=== PATIENT | male | born 2000 | race Two or more races ===

== ENCOUNTER 2025-05-21 20:09 | Emergency (ER) | payer MEDICAID, SELFPAY ==
[2025-05-21 20:11] VITALS: BP 138/78; PULSE 100; RESP 18; TEMP 37.8; O2SAT 96; BMI 35.2
--- NOTE | 2025-05-21 20:32 | PD.EDEAR ---
ED Ear RME/HPI General Chief complaint: Ear Stated complaint: BILAT EAR PAIN Time Seen by Provider: 05/21/25 20:20 Arrival date/time: 05/21/25 20:09 This is a case of 54-year-old male with no medical history came in in the emergency room due to bilateral ear pain with bilateral ear discharge for 2 days with decreased hearing no tinnitus no dizziness no cough no nasal congestion persistence of the symptoms this patient decided to sought consult here in the emergency room Limitations: no limitations Related Data Previous Rx's ?Medication ?Instructions ?Recorded amoxicillin 875 mg-potassium 1 tab PO BID 10 days #20 tabs 05/21/25 clavulanate 125 mg tablet ibuprofen 800 mg tablet 800 mg PO Q8H PRN pain #20 tabs 05/21/25 ofloxacin 0.3 % ear drops 5 drp otic (ear) BID 7 days #10 mL 05/21/25 Allergies Allergy/AdvReac Type Severity Reaction Status Date / Time No Known Allergies Allergy Verified 05/21/25 20:15 Review of Systems Review of Systems Systems Reviewed: All systems reviewed, normal except as documented Constitutional Constitutional: Reports system reviewed and no additional complaints, except as documented and Reports as per HPI ENT Ears, Nose, Mouth, and Throat: Reports system reviewed and no additional complaints, except as documented and Reports as per HPI Cardiovascular Cardiovascular: Reports system reviewed and no additional complaints, except as documented and Reports as per HPI Respiratory Respiratory: Reports system reviewed and no additional complaints, except as documented and Reports as per HPI Musculoskeletal Musculoskeletal: Reports system reviewed and no additional complaints, except as documented and Reports as per HPI Neurologic Neurologic: Reports system reviewed and no additional complaints, except as documented and Reports as per HPI Past Medical History Social History SMOKING STATUS: Never smoker ED Exam General Limitations: Present no limitations General appearance: Present alert, in no apparent distress and other (Patient is awake alert oriented not in distress nontoxic looking well-hydrated well-nourished) Head Head exam: Present atraumatic, normocephalic and normal inspection Eye Eye exam: Present normal appearance, PERRL and EOMI ENT ENT exam: Present normal exam, normal oropharynx and mucous membranes moist Expanded ENT Exam External ear exam: Present other (Noted nose and throat oral exam bilateral ear canal noted a purulent ear yellowish discharge tender to touch no swelling no mastoid tenderness no earwax no foreign body both tympanic membrane are retracted bulging red but not perforated) Neck Neck exam: Present normal inspection, full ROM and trachea midline; Absent tenderness, meningismus, lymphadenopathy or thyromegaly Chest Chest inspection: Present normal inspection and symmetric chest wall rise; Absent tenderness Respiratory Respiratory exam: Present normal lung sounds bilaterally; Absent respiratory distress, wheezes, stridor, accessory muscle use or prolonged expiratory phase Cardiovascular Cardiovascular exam: Present regular rate, normal rhythm and normal heart sounds; Absent bradycardia, tachycardia, irregular rhythm, systolic murmur or diastolic murmur Abdominal Exam Abdominal exam: Present soft and normal bowel sounds; Absent distention, tenderness, guarding, rebound, rigidity, diminished bowel sounds, hyperactive bowel sounds, hypoactive bowel sounds or organomegaly Extremities Exam Extremities exam: Present normal inspection and full ROM Back Exam Back exam: Present normal inspection and full ROM Neurological Exam Neurological exam: Present alert, oriented X3, CN II-XII intact, normal gait and reflexes normal; Absent motor sensory deficit Psychiatric Psychiatric exam: Present normal affect and normal mood Skin Skin exam: Present warm, dry, intact and normal color Course Quality Measures none Orders Category Date Time Status HYDROcodone*/APAP 5/325 [[place] 5/325] Med 05/21/25 20:29 Discontinued 1 tab PO X1 ONE cefTRIAXone [Rocephin] 1,000 mg Med 05/21/25 20:29 Discontinued Lidocaine 1% Pf 5 ml [Xylocaine 1% Pf 5 ml] 2.1 ml IM X1 Vital Signs Vital signs: Vital Signs Temperature 100.1 F 05/21/25 20:11 Pulse Rate 100 05/21/25 20:11 Respiratory Rate 18 05/21/25 20:11 Blood Pressure 138/78 H 05/21/25 20:11 Pulse Oximetry (%) 96 05/21/25 20:11 Oxygen Delivery Method Room Air 05/21/25 20:11 Oxygen saturation is 96% in room air normal Ear MDM Narrative MDM Narrative:: This is a case of 54-year-old male with no medical history came in in the emergency room due to bilateral ear pain with bilateral ear discharge for 2 days with decreased hearing no tinnitus no dizziness no cough no nasal congestion persistence of the symptoms this patient decided to sought consult here in the emergency room physical examination patient is awake alert oriented not in distress nontoxic looking well-hydrated well-nourished patient 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 no swelling with purulent yellowish discharge no earwax no foreign body no mastoid tenderness bilaterally both tympanic membrane noted to be red retracted bulging but not perforated the rest of the physical examination and neurological exam is normal and unremarkable based on my physical examination and history patient symptoms suggestive of acute suppurative otitis media patient was given a shot of ceftriaxone IM here and was given Augmentin and otic drops to be taken for 10 days he was advised if symptoms persist he needs to see an ENT specialist for further evaluation and treatment of acute suppurative otitis media for any worsening symptoms return to the emergency room immediately or call 911 Patient was discharged with comfortable condition walking with stable gait. Patient verbalized no further complains explained diagnosis and answered patient question. Patient is comfortable with the proposed management plan including the need to follow up with his/her primary care physician and any specialist if applicable Discussed patient for any urgent condition or worsening sx, He/She needed to go to emergency room immediately or call 911. Patient acknowledge the responsibility to follow up as instructed and to monitor her/his symptoms. For any persistence of the symptoms for more than 3-5 days return precaution advised. Discussed the result of the test and was given printed discharge instruction Patient data External records reviewed:: [facility] previous records Clinical information provided by:: patient Social determinants that could affect healthcare access:: none Patient has the following chronic illnesses:: None How is presenting disease/condition affected by chronic disease/condition?: no chronic disease Evaluation data The following diagnostics were reviewed and interpreted by me:: other (specify) (None) Lab and/or radiology exams considered but not ordered:: None Interpretation Summary: None Medications / Prescriptions Medications or Prescriptions considered but not ordered:: Given Medication administrations:: Medication Administration History Discontinued Medications Hydrocodone Bitart/Acetaminophen (Hydrocodone/[place] 5/325 Tablet) 1 tab PO X1 ONE Stop: 05/21/25 20:30 Ceftriaxone Sodium 1,000 mg/ (Lidocaine HCl 2.1 ml) 0 mg IM X1 ONE Stop: 05/21/25 20:30 Given Consultations Consultation(s) initiated? (list below): No Diagnosis Ear Differential Diagnosis: otitis externa, otitis media, foreign body in ear, ruptured TM and cerumen impaction Most likely diagnosis given after review of the tests above:: Otitis media acute suppurative Admission Indicated Admission indicated?: not indicated Explain why admission is indicated or not indicated:: Not indicated Admission Request Was there a request for admission?: No Admission Attestation Admission request attestation: Not indicated Disposition Plan Disposition Plan: Discharge Discharge Attestation Discharge Attestation: The patient and all family members were given an opportunity to ask questions and understood the discharge instructions. Discharge instructions specifically effects, indications for sooner follow up or return to the emergency department, and the expected course of current diagnosis. Patient condition: Stable Discharge Plan Plan Patient Disposition: HOME (Self Care) Patient condition on transfer: Stable Prescriptions/Referrals Prescriptions/Med Rec: New amoxicillin-pot clavulanate 875-125 mg tablet 1 tab PO BID 10 Days Qty: 20 0RF ibuprofen 800 mg tablet 800 mg PO Q8H PRN (Reason: pain) Qty: 20 0RF ofloxacin 0.3 % drops 5 drp otic (ear) BID 7 Days Qty: 10 0RF Rx Instructions: BOTH EARS Problem List Clinical Impression: Acute suppurative otitis media Patient/Caregiver Discharge Instructions Education Materials: Common Middle Ear Problems, ED Otitis Media Antibiotic ... Additional Instructions: Follow-up with your primary care physician in 2 days for reevaluation and if symptoms persist needs to see an ENT specialist for further evaluation and treatment of acute suppurative otitis media recurrence persistent worsening symptoms or any emergent concern call 911 or go to the nearest emergency room take your medication as directed finish the course of antibiotic no Q-tips no cotton balls prevent water to enter both ears no swimming is advised Print Language: Armenian Stand Alone Forms: Roxanne Award Info., Patient Portal Info Letter WILLY/YUNIOR Supervising Physician WILLY/YUNIOR Supervising Physician: Dr. Cadet
[2025-05-21] MEDS: HYDROcodone/APAP 5/325 TABLET 1 TAB PO (20:49)
== END 2025-05-21 20:59 | disposition home or self-care (01) ==
LOC: SERX 20:59
PROVIDERS: Emergency Provider Emergency Medicine
DX: H66.003 Acute suppurative otitis media without spontaneous rupture of ear drum, bilateral (principal)
CPT/HCPCS: 96372; 99282; J0696; J3490; A9270